=== PATIENT | female | born 2005 | race Two or more races ===

== ENCOUNTER 2023-07-23 04:36 | Emergency (ER) | payer SELFPAY ==
[2023-07-23] MEDS ORDERED: Sodium Chloride 0.9% 10 ML Syringe FLUSH PRN (04:52)
[2023-07-23] MEDS ORDERED: Sodium Chloride 0.9% 2.5 ML Syringe FLUSH PRN (04:52)
[2023-07-23] MEDS ORDERED: Sodium Chloride 0.9% 1,000 ML IV ONE (04:52)
[2023-07-23] MEDS ORDERED: Ketorolac 30 MG/ML SDV IVPUSH ONE (04:52)
[2023-07-23 05:00] LABS: BASOPHILS PERCENT AUTO 0.2 % (0.0-1.5); EOSINOPHILS ABSOLUTE AUTO 0.1 K/uL (0.0-0.7); EOSINOPHILS PERCENT AUTO 0.7 % (0.0-7.0); HEMATOCRIT 39.1 % (36.0-46.0); HEMOGLOBIN 12.9 g/dL (12.0-16.0); LYMPHOCYTES ABSOLUTE AUTO 2.7 K/uL (0.6-2.4); LYMPHOCYTES PERCENT AUTO 30.1 % (16.0-40.0); MEAN CORPUSCULAR HEMOGLOBIN 28.6 pg (27.0-32.0); MEAN CORPUSCULAR VOLUME 86.7 fL (80.0-98.0); MONOCYTES ABSOLUTE AUTO 0.8 K/uL (0.0-0.8); MONOCYTES PERCENT AUTO 8.8 % (0.0-15.0); NEUTROPHILS ABSOLUTE AUTO 5.4 K/uL (1.4-5.7); NEUTROPHILS PERCENT AUTO 60.2 % (48.0-80.0); NRBC ABSOLUTE 0 K/uL; PLATELET COUNT,PLT 353 K/uL (150-400); RED BLOOD CELL COUNT 4.51 M/uL (4.30-5.90); WHITE BLOOD CELL COUNT,WBC 9.01 K/uL (4.0-11.0)
[2023-07-23 05:04] LABS: BILIRUBIN,URINE NEGATIVE (NEGATIVE); COLOR,URINE YELLOW; GLUCOSE,URINE NEGATIVE (NEGATIVE); KETONES,URINE NEGATIVE (NEGATIVE); LEUKOCYTE ESTERASE,URINE LARGE (NEGATIVE); NITRITE,URINE NEGATIVE (NEGATIVE); OCCULT BLOOD,URINE MODERATE (NEGATIVE); PH,URINE 6.5 (5.0-8.0); PROTEIN,URINE TRACE mg/dL (NEGATIVE); UROBILINOGEN,URINE 0.2 EU/dL (<2.0)
[2023-07-23 05:11] LABS: APPEARANCE,URINE SLT CLOUDY
[2023-07-23 05:12] LABS: BACTERIA,URINE 1+ (NEGATIVE); EPITHELIAL CELLS,URINE FEW (NONE-FEW); MUCUS,URINE LIGHT (NONE-MOD)
[2023-07-23 05:23] LABS: A/G RATIO 0.8 (0.9-1.6); ALBUMIN 3.5 g/dL (3.4-5.0); BILIRUBIN TOTAL 0.2 mg/dL (0.2-1.0); CALCIUM 8.7 mg/dL (8.5-10.1); CARBON DIOXIDE,CO2 26.4 mmol/L (21.0-32.0); CREATININE 0.8 mg/dL (0.6-1.0); EST CRCL DRUG DOSING (CG) 96.86 mL/min; POTASSIUM,K 3.8 mmol/L (3.5-5.1); PROTEIN TOTAL,TP 7.9 g/dL (6.4-8.2)
[2023-07-23] MEDS ORDERED: cefTRIAXone 1 GM in Sodium Chloride 0.9% 50 ML IV ONE (06:31)
== END 2023-07-23 07:52 | disposition home or self-care (01) ==
LOC: MW.ED 04:36
DX: N39.0 Urinary tract infection, site not specified (principal); M79.10 Myalgia, unspecified site
CPT/HCPCS: 36415; 74176; 80053; 81001; 83690; 84703; 85025; 87086; 87088; 87186; 96361; 96365; 96375; 99284; J0696; J1885; J3490; J7030

== ENCOUNTER 2024-08-17 11:28 | Emergency (ER) | payer SELFPAY ==
[2024-08-17 12:36] LABS: BASOPHILS ABSOLUTE AUTO 0.03 K/uL (0.00-0.20); BASOPHILS PERCENT AUTO 0.5 % (0.0-1.0); EOSINOPHILS ABSOLUTE AUTO 0.17 K/uL (0.00-0.45); EOSINOPHILS PERCENT AUTO 2.8 % (0.0-6.0); HEMATOCRIT 37.3 % (37.0-47.0); HEMOGLOBIN 11.8 g/dL (12.0-16.0); IMMATURE GRAN ABSOLUTE AUTO 0.01 K/uL (0.00-0.05); IMMATURE GRAN PERCENT AUTO 0.2 % (0.0-0.4); LYMPHOCYTES ABSOLUTE AUTO 2.15 K/uL (1.00-4.80); LYMPHOCYTES PERCENT AUTO 35.4 % (24.0-44.0); MEAN CORPUSCULAR HEMOGLOBIN 27.3 pg (28.0-32.0); MEAN CORPUSCULAR HGB CONC 31.6 g/dL (32.0-36.0); MEAN CORPUSCULAR VOLUME 86.3 fL (83.0-99.0); MEAN PLATELET VOLUME 8.9 fL (9.4-12.3); MONOCYTES ABSOLUTE AUTO 0.38 K/uL (0.00-0.80); MONOCYTES PERCENT AUTO 6.3 % (0.0-8.0); NEUTROPHILS ABSOLUTE AUTO 3.34 K/uL (1.80-7.70); NEUTROPHILS PERCENT AUTO 54.8 % (41.0-71.0); PLATELET COUNT,PLT 287 K/uL (150-400); RED BLOOD CELL COUNT 4.32 M/uL (4.10-5.30); WHITE BLOOD CELL COUNT,WBC 6.08 K/uL (3.9-11.3)
[2024-08-17 15:58] LABS: APPEARANCE,URINE CLOUDY; BILIRUBIN,URINE NEGATIVE (NEGATIVE); COLOR,URINE YELLOW; GLUCOSE,URINE NEGATIVE (NEGATIVE); KETONES,URINE 15 mg/dL (NEGATIVE); LEUKOCYTE ESTERASE,URINE TRACE (NEGATIVE); NITRITE,URINE NEGATIVE (NEGATIVE); OCCULT BLOOD,URINE LARGE (NEGATIVE); PROTEIN,URINE TRACE mg/dL (NEGATIVE); UROBILINOGEN,URINE 0.2 EU/dL (<2.0)
[2024-08-17 16:06] LABS: BACTERIA,URINE 2+ (NEGATIVE); EPITHELIAL CELLS,URINE FEW (NONE-FEW); RBC,URINE 50-75 (0-2/HPF)
[2024-08-17 16:07] LABS: MUCUS,URINE LIGHT (NONE-MOD)
[2024-08-17] MEDS: Cephalexin 500 MG Cap PO ONE (17:03)
== END 2024-08-17 17:09 | disposition home or self-care (01) ==
LOC: MW.ED 11:28
DX: O03.4 Incomplete spontaneous abortion without complication (principal); O23.41 Unspecified infection of urinary tract in pregnancy, first trimester; Z75.8 Other problems related to medical facilities and other health care; Z3A.12 12 weeks gestation of pregnancy
CPT/HCPCS: 36415; 76817; 81001; 84702; 85025; 86900; 86901; 87086; 99284; A9270

== ENCOUNTER 2024-08-18 04:12 | Emergency (ER) | payer SELFPAY ==
[2024-08-18 04:29] LABS: BASOPHILS ABSOLUTE AUTO 0.03 K/uL (0.00-0.20); BASOPHILS PERCENT AUTO 0.3 % (0.0-1.0); EOSINOPHILS ABSOLUTE AUTO 0.18 K/uL (0.00-0.45); EOSINOPHILS PERCENT AUTO 1.7 % (0.0-6.0); HEMATOCRIT 35.8 % (37.0-47.0); HEMOGLOBIN 11.6 g/dL (12.0-16.0); IMMATURE GRAN ABSOLUTE AUTO 0.03 K/uL (0.00-0.05); IMMATURE GRAN PERCENT AUTO 0.3 % (0.0-0.4); LYMPHOCYTES ABSOLUTE AUTO 2.55 K/uL (1.00-4.80); LYMPHOCYTES PERCENT AUTO 23.9 % (24.0-44.0); MEAN CORPUSCULAR HEMOGLOBIN 27.8 pg (28.0-32.0); MEAN CORPUSCULAR HGB CONC 32.4 g/dL (32.0-36.0); MEAN CORPUSCULAR VOLUME 85.9 fL (83.0-99.0); MEAN PLATELET VOLUME 9.1 fL (9.4-12.3); MONOCYTES ABSOLUTE AUTO 0.51 K/uL (0.00-0.80); MONOCYTES PERCENT AUTO 4.8 % (0.0-8.0); NEUTROPHILS ABSOLUTE AUTO 7.38 K/uL (1.80-7.70); PLATELET COUNT,PLT 289 K/uL (150-400); RED BLOOD CELL COUNT 4.17 M/uL (4.10-5.30); WHITE BLOOD CELL COUNT,WBC 10.68 K/uL (3.9-11.3)
[2024-08-18] MEDS: Sodium Chloride 0.9% 1,000 ML IV ONE (04:39)
[2024-08-18] MEDS: Ondansetron 4 MG/2 ML SDV IVPUSH ONE (04:39)
[2024-08-18] MEDS: Sodium Chloride 0.9% 10 ML Syringe FLUSH PRN (04:39)
[2024-08-18] MEDS: Morphine 2 MG/ML SYRINGE IVPUSH ONE ×2 (04:46→06:24)
[2024-08-18 04:49] LABS: BILIRUBIN,URINE NEGATIVE (NEGATIVE); COLOR,URINE YELLOW; GLUCOSE,URINE NEGATIVE (NEGATIVE); KETONES,URINE NEGATIVE (NEGATIVE); LEUKOCYTE ESTERASE,URINE NEGATIVE (NEGATIVE); NITRITE,URINE NEGATIVE (NEGATIVE); OCCULT BLOOD,URINE LARGE (NEGATIVE); PH,URINE 6.5 (5.0-8.0); PROTEIN,URINE NEGATIVE (NEGATIVE); UROBILINOGEN,URINE 0.2 EU/dL (<2.0)
[2024-08-18] MEDS: Acetaminophen 500 MG Tab PO ONE (04:52)
[2024-08-18 04:58] LABS: AMORPHOUS SEDIMENT,URINE MODERATE (NEGATIVE); APPEARANCE,URINE SLT CLOUDY; BACTERIA,URINE FEW (NEGATIVE); EPITHELIAL CELLS,URINE FEW (NONE-FEW); RBC,URINE 20-30 (0-2/HPF); WBC,URINE 0-5 (0-5/HPF)
[2024-08-18 05:22] LABS: A/G RATIO 0.9 (0.9-1.6); ALBUMIN 3.6 g/dL (3.4-5.0); BILIRUBIN TOTAL 0.4 mg/dL (0.2-1.0); CALCIUM 9.2 mg/dL (8.5-10.1); CARBON DIOXIDE,CO2 29.1 mmol/L (21.0-32.0); CREATININE 0.7 mg/dL (0.6-1.0); EST CRCL DRUG DOSING (CG) 100.55 mL/min; POTASSIUM,K 3.3 mmol/L (3.5-5.1); PROTEIN TOTAL,TP 7.5 g/dL (6.4-8.2)
[2024-08-18] MEDS: Lactated Ringers 1,000 ML IV ONE (06:18)
[2024-08-18] MEDS: Promethazine 25 MG/ML SDV IM ONE (06:18)
== END 2024-08-18 07:50 | disposition home or self-care (01) ==
LOC: MW.ED 04:12
DX: O03.9 Complete or unspecified spontaneous abortion without complication (principal); R11.14 Bilious vomiting; R30.0 Dysuria; Z79.899 Other long term (current) drug therapy; Z87.440 Personal history of urinary (tract) infections
CPT/HCPCS: 36415; 76817; 80053; 81001; 83690; 84702; 85025; 86900; 86901; 96361; 96372; 96374; 96375; 96376; 99284; A9270; J2270; J2405; J2550; J3490; J7030; J7120

== ENCOUNTER 2024-08-19 15:25 | Day surgery (SDC) | payer SELFPAY ==
[2024-08-19 16:24] LABS: BASOPHILS ABSOLUTE AUTO 0.02 K/uL (0.00-0.20); BASOPHILS PERCENT AUTO 0.1 % (0.0-1.0); EOSINOPHILS ABSOLUTE AUTO 0.13 K/uL (0.00-0.45); HEMATOCRIT 35.1 % (37.0-47.0); HEMOGLOBIN 11.4 g/dL (12.0-16.0); IMMATURE GRAN ABSOLUTE AUTO 0.04 K/uL (0.00-0.05); IMMATURE GRAN PERCENT AUTO 0.3 % (0.0-0.4); LYMPHOCYTES PERCENT AUTO 15.4 % (24.0-44.0); MEAN CORPUSCULAR HGB CONC 32.5 g/dL (32.0-36.0); MEAN CORPUSCULAR VOLUME 86.2 fL (83.0-99.0); MEAN PLATELET VOLUME 9.1 fL (9.4-12.3); MONOCYTES ABSOLUTE AUTO 0.63 K/uL (0.00-0.80); MONOCYTES PERCENT AUTO 4.6 % (0.0-8.0); NEUTROPHILS ABSOLUTE AUTO 10.68 K/uL (1.80-7.70); NEUTROPHILS PERCENT AUTO 78.6 % (41.0-71.0); PLATELET COUNT,PLT 272 K/uL (150-400); RED BLOOD CELL COUNT 4.07 M/uL (4.10-5.30)
[2024-08-19] MEDS: Morphine 4 MG/ML Syringe IVPUSH ONE (16:27)
[2024-08-19] MEDS: HYDROmorphone 0.5 MG/0.5 ML Syringe IVPUSH ONE (17:29)
[2024-08-19 18:27] LABS: CALCIUM 9.4 mg/dL (8.5-10.1); CARBON DIOXIDE,CO2 25.7 mmol/L (21.0-32.0); CREATININE 0.8 mg/dL (0.6-1.0); EST CRCL DRUG DOSING (CG) 104.14 mL/min; POTASSIUM,K 3.4 mmol/L (3.5-5.1)
[2024-08-19] MEDS: Sodium Chloride 0.9% 1,000 ML IV ONE (19:34)
[2024-08-19] MEDS ORDERED: fentaNYL 100 MCG/2 ML SDV ONE (20:19)
[2024-08-19] MEDS ORDERED: Propofol 200 MG/20 ML SDV ONE (20:19)
[2024-08-19] MEDS ORDERED: propofoL 0 ML ONE (20:19)
[2024-08-19] MEDS ORDERED: Famotidine 20 MG/2 ML SDV ONE (20:21)
[2024-08-19] MEDS ORDERED: Ondansetron 4 MG/2 ML SDV ONE (20:21)
[2024-08-19] MEDS ORDERED: Dexamethasone 4 MG/ML 5 ML MDV ONE (20:21)
[2024-08-19] MEDS ORDERED: Lidocaine 2% 5 ML SDV ONE (20:23)
[2024-08-19] MEDS ORDERED: dexmedeTOMIDine HCl 200 MCG/2 ML SDV ONE (20:25)
[2024-08-19] MEDS: Azithromycin 500 MG in Sodium Chloride 0.9% 250 ML IV ONE (20:51)
[2024-08-19] MEDS ORDERED: Rocuronium Bromide 50 MG/5 ML Syringe ONE (20:59)
[2024-08-19] MEDS ORDERED: Lidocaine 2% 11 ML Jelly Filled Syringe ONE (21:02)
[2024-08-19] MEDS ORDERED: Tranexamic Acid 1,000 MG/10 ML Vial ONE (21:16)
[2024-08-19] MEDS ORDERED: propofoL 50 ML ONE (21:21)
[2024-08-19] MEDS ORDERED: Sugammadex Sodium 200 MG/2 ML VIAL IV ONE (21:27)
[2024-08-19] MEDS ORDERED: Water For Injection, Sterile 20 ML ONE (21:27)
[2024-08-19] MEDS ORDERED: Ketorolac 30 MG/ML SDV ONE (21:28)
== END 2024-08-20 01:50 | disposition home or self-care (01) ==
LOC: MW.ED 15:25 → MW.MS 19:57 → MW.SDS 19:57
PROVIDERS: ATTEND Obstetrics & Gynecology
DX: O03.1 Delayed or excessive hemorrhage following incomplete spontaneous abortion (principal)
CPT/HCPCS: 36415; 59812; 80048; 84702; 85025; 86850; 86900; 86901; 96374; 96375; 99284; A9270; J0131; J1100; J1170; J1885; J2270; J2405; J2704; J3010; J3490; J7030

== ENCOUNTER 2025-10-27 09:57 | Inpatient (IN) | payer SELFPAY ==
[2025-10-27] MEDS: Lactated Ringers 1,000 ML IV SCH (11:40)
[2025-10-27] MEDS ORDERED: Sodium Chloride 0.9% 10 ML Syringe FLUSH PRN ×2 (11:55→15:47)
[2025-10-27] MEDS ORDERED: Citric Acid/Sodium Citrate Solution 30 ML Cup PO ONE (11:55)
[2025-10-27] MEDS ORDERED: Sodium Chloride 0.9% 2.5 ML Syringe FLUSH PRN ×2 (11:55→15:47)
[2025-10-27] MEDS ORDERED: Oxytocin/0.9 % Sodium Chloride 30 UNIT/500 ML BAG IV SCH ×2 (12:00→15:15)
[2025-10-27 12:07] LABS: MEAN PLATELET VOLUME 10.3 fL (9.4-12.3); NRBC ABSOLUTE 0.00 K/uL (0.00-0.02); NRBC PERCENT 0.0 /100WBC (0.0-0.2); PLATELET COUNT,PLT 276 K/uL (150-400); RED BLOOD CELL COUNT 3.88 M/uL (4.10-5.30); WHITE BLOOD CELL COUNT,WBC 5.09 K/uL (3.9-11.3)
[2025-10-27] MEDS ORDERED: Ketorolac 30 MG/ML SDV ONE (12:25)
[2025-10-27] MEDS ORDERED: fentaNYL 100 MCG/2 ML SDV ONE (12:25)
[2025-10-27] MEDS ORDERED: Morphine PF 10 MG/10 ML SDV ONE (12:25)
[2025-10-27] MEDS ORDERED: Oxytocin 10 Units/1 ML SDV ONE ×3 (12:25→12:31)
[2025-10-27] MEDS ORDERED: Ropivacaine 0.5% 5 MG/ML 30 ML SDV ONE (12:25)
[2025-10-27] MEDS ORDERED: Dexamethasone Sod Phos Preservative Free 10 MG/ML Vial ONE (12:25)
[2025-10-27] MEDS ORDERED: Ondansetron 4 MG/2 ML SDV ONE ×2 (12:25→12:26)
[2025-10-27] MEDS ORDERED: fentaNYL 100 MCG/2 ML SDV IVPUSH PRN (14:29)
[2025-10-27] MEDS ORDERED: fentaNYL 50 MCG/ML SDV IVPUSH PRN (14:29)
[2025-10-27] MEDS ORDERED: Naloxone 0.4 MG/ML SDV IVPUSH PRN (14:29)
[2025-10-27] MEDS ORDERED: diphenhydrAMINE 50 MG/ML SDV IVPUSH PRN (14:29)
[2025-10-27] MEDS ORDERED: Ondansetron 4 MG/2 ML SDV IVPUSH PRN ×3 (14:29→15:14)
[2025-10-27] MEDS ORDERED: Nalbuphine 10 MG/1 ML Vial IVPUSH PRN (14:29)
[2025-10-27] MEDS ORDERED: Albuterol 0.083% 2.5 MG/3 ML Neb Soln NEB PRN (14:29)
[2025-10-27] MEDS ORDERED: Acetaminophen/oxyCODONE 325-5 MG Tab PO PRN (14:29)
[2025-10-27] MEDS ORDERED: Lanolin 100% Cream 7 GM Tube TOP PRN (15:14)
[2025-10-27] MEDS ORDERED: Diphtheria,Pertussis(Acell),Tetanus Vaccine 0.5 ML Syringe IM ONE (15:14)
[2025-10-27] MEDS ORDERED: Measles, Mumps & Rubella Vaccine 0.5 ML SDV SUBCUT ONE (15:14)
[2025-10-27] MEDS ORDERED: Carboprost Tromethamine 250 MCG/1 mL Vial IM PRN (15:14)
[2025-10-27] MEDS ORDERED: Ketorolac 30 MG/ML SDV IVPUSH SCH (18:30)
[2025-10-27] MEDS: Ketorolac 30 MG/ML SDV IVPUSH SCH (19:57)
[2025-10-28 06:10] LABS: BASOPHILS ABSOLUTE AUTO 0.01 K/uL (0.00-0.20); BASOPHILS PERCENT AUTO 0.1 % (0.0-1.0); EOSINOPHILS ABSOLUTE AUTO 0.00 K/uL (0.00-0.45); EOSINOPHILS PERCENT AUTO 0.0 % (0.0-6.0); IMMATURE GRAN ABSOLUTE AUTO 0.03 K/uL (0.00-0.05); IMMATURE GRAN PERCENT AUTO 0.3 % (0.0-0.4); LYMPHOCYTES ABSOLUTE AUTO 1.59 K/uL (1.00-4.80); LYMPHOCYTES PERCENT AUTO 16.3 % (24.0-44.0); MEAN PLATELET VOLUME 9.5 fL (9.4-12.3); MONOCYTES ABSOLUTE AUTO 0.92 K/uL (0.00-0.80); MONOCYTES PERCENT AUTO 9.4 % (0.0-8.0); NEUTROPHILS ABSOLUTE AUTO 7.23 K/uL (1.80-7.70); NEUTROPHILS PERCENT AUTO 73.9 % (41.0-71.0); NRBC ABSOLUTE 0.00 K/uL (0.00-0.02); NRBC PERCENT 0.0 /100WBC (0.0-0.2); PLATELET COUNT,PLT 226 K/uL (150-400); RED BLOOD CELL COUNT 3.20 M/uL (4.10-5.30); WHITE BLOOD CELL COUNT,WBC 9.78 K/uL (3.9-11.3)
[2025-10-28] MEDS: Sodium Ferric Gluconate Cmplex 125 MG in Sodium Chloride 0.9% 100 ML IV SCH (16:54)
== END 2025-10-29 15:30 | disposition home or self-care (01) | DRG 787 ==
LOC: MW.OB 11:11 → OBSVTOIN 11:55 → MW.OB 11:55 → EEVIPCON 13:00 → MW.OB 17:20
PROVIDERS: ADMIT Obstetrics & Gynecology Obstetrics; ATTEND Obstetrics & Gynecology Obstetrics
PROC: 10907ZC Drainage of Amniotic Fluid, Therapeutic from Products of Conception, Via Natural or Artificial Opening (ICD-10-PCS; 2025-10-27)
PROC: 3E0R3BZ Introduction of Anesthetic Agent into Spinal Canal, Percutaneous Approach (ICD-10-PCS; 2025-10-27)
PROC: 3E0P7VZ Introduction of Hormone into Female Reproductive, Via Natural or Artificial Opening (ICD-10-PCS; 2025-10-27)
PROC: 3E033VJ Introduction of Other Hormone into Peripheral Vein, Percutaneous Approach (ICD-10-PCS; 2025-10-27)
PROC: 10D00Z1 Extraction of Products of Conception, Low, Open Approach (ICD-10-PCS; principal; 2025-10-27 13:00)
DX: O34.219 Maternal care for unspecified type scar from previous cesarean delivery (principal); D62 Acute posthemorrhagic anemia; O99.02 Anemia complicating childbirth; Z3A.39 39 weeks gestation of pregnancy; Z37.0 Single live birth
CPT/HCPCS: 01961; 36415; 59025; 64488; 85025; 85027; 86592; 86850; 86900; 86901; A9270-GY; J0166; J0665; J0690; J1100; J1885; J2274; J2371; J2405; J2590; J2795; J2916; J3010; J7120